=== PATIENT | female | born 1960 | race Caucasian/White ===

== ENCOUNTER 2017-03-24 21:29 | Emergency (ER) | payer OTHER ==
[2017-03-24 21:42] VITALS: PULSE 78
[2017-03-24] MEDS ORDERED: ATARAX 25 MG PO ONE (21:59)
--- NOTE | 2017-03-24 22:06 | ERPHSYRPT ---
- History of Present Illness Time Seen by Provider: 03/24/17 21:37 Source: patient Patient Subjective Stated Complaint: Pt sts that she has had elevated blood pressure since 1600 today. Sts took a few doses of her HTN medications to try to bring blood pressure down. Sts was 190's on top at home. Sts headache all over head 4/10 describes as dull. Sts eye pressure. Denies blurred vision. Denies shortness of breath. Sts nausea. Denies vomiting. Denies chest pain. Sts left arm felt like sore muscles earlier. Sts arm still feels sore. Sts feels like she is anxious due to increased stressors in the last few days. Denies cardiac hx Triage Nursing Assessment: Pt alert, oriented, answers all questions appropriately. Skin p/w/d, resps non-labored. 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 Pt ambulatory to tx room steady gait noted. Speaking in full sentences without difficulty. Lung sounds CTA bilat. ABD SNT x 4 quadrants, + bowel sounds. Physician History: CC: high blood pressure Hx: 56 y/o patient of Dr Kerns with hx of HTN. She had some stress and has felt a little anxious. She has Rx for klonopin but does not like to take it. Today felt a little unusual. Maybe slight headache. No chest pain. No N/T/W. [place] a little blurry. She checked BP and it was high. She took two extra halves of her BP med and came to ER. She lives at home with her boyfriend. Timing/Duration: today Allergies/Adverse Reactions: No Known Drug Allergies Allergy (Unverified 03/24/17 21:48) Home Medications: Levothyroxine Sodium [Synthroid] 25 mcg PO DAILY 03/24/17 [History] Losartan Potassium 25 mg PO DAILY 03/24/17 [History] Hx Influenza Vaccination/Date Given: No Hx Pneumococcal Vaccination/Date Given: No - Review of Systems Constitutional: Malaise, No Fever, No Chills Eyes: Vision Changes (blurry) Ears, Nose, & Throat: No Symptoms Respiratory: No Cough, No Dyspnea Cardiac: No Chest Pain Abdominal/Gastrointestinal: No Abdominal Pain, No Nausea, No Vomiting Musculoskeletal: No Back Pain, No Neck Pain Skin: No Rash Neurological: No Dizziness, No Focal Weakness, No Headache, No Parasthesia, No Seizure All Other Systems: Reviewed and Negative - Past Medical History Pertinent Past Medical History: Yes Cardiac History: Hypertension Endocrine Medical History: Hypothyroidism - Past Surgical History Gastrointestinal: Cholecystectomy Other Surgical History: 2 c-sections, sinus surgery - Social History Smoking Status: Former smoker Exposure to second hand smoke: No Drug Use: none Patient Lives Alone: No - Nursing Vital Signs Nursing Vital Signs: Initial Vital Signs Temperature 98.0 F Temperature Source Oral Pulse Rate 78 Respiratory Rate 12 Blood Pressure [Right Arm] 148/97 Pain Intensity 4 - Physical Exam General Appearance: alert Eye Exam: PERRL/EOMI Ears, Nose, Throat Exam: normal ENT inspection, moist mucous membranes Neck Exam: normal inspection, non-tender, supple Respiratory Exam: normal breath sounds, lungs clear Cardiovascular Exam: regular rate/rhythm Gastrointestinal/Abdomen Exam: soft, No tenderness, No distention Back Exam: normal inspection, normal range of motion Extremity Exam: normal inspection, normal range of motion Neurologic Exam: alert, oriented x 3, cooperative, 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, nml station & gait, sensation nml, No motor deficits Skin Exam: warm, dry SpO2 Interpretation: normal SpO2: 95 Oxygen Delivery: Room Air - Course Nursing assessment & vital signs reviewed: Yes Ordered Tests: Active Orders 24 hr Category Date Time Status Clean Catch Urine Specimen STAT Care 03/24/17 21:59 Active UA W/ MICROSCOPIC Stat Lab 03/24/17 21:59 Completed Medication Summary Discontinued Medications Generic Name Dose Route Start Last Admin Trade Name Freq PRN Reason Stop Dose Admin Hydroxyzine HCl 50 mg 03/24/17 21:59 03/24/17 22:11 Atarax 25 Mg PO 03/24/17 22:00 Not Given STAT ONE Lab/Rad Data: Laboratory Results 03/24/17 Range/Units 21:59 Ur Collection Type CLEAN CATCH Urine Color YELLOW (YELLOW) Urine Appearance CLEAR (CLEAR) Urine pH 7.5 (5-6) Ur Specific [place] 1.015 (1.005-1.025) Urine Protein NEGATIVE (Negative) Urine Glucose (UA) NEGATIVE (NEGATIVE) mg/dL Urine Ketones NEGATIVE (NEGATIVE) Urine Nitrite NEGATIVE (NEGATIVE) Urine Bilirubin NEGATIVE (NEGATIVE) Urine Urobilinogen 1 (0-1) mg/dL Urine WBC (Auto) TRACE (NEGATIVE) Urine RBC (Auto) NEGATIVE (0-5) Kirsh/ul Urine Microscopic WBC 0-2 (0-5) /HPF Urine Bacteria RARE (NEGATIVE) /HPF Specimen Received [id number] - Progress Progress Note: 03/24/17 22:06 BP better now. Advised hydrozyzine. She had recent normal labs. She declines EKG. Advised close follow up with Dr Kerns. 03/24/17 22:33 The patient is stable. BP better. She declined hydroxyzine here. Advised she take losartan 25 BID and follow up with Dr Kerns this week. She was advised to call or return for she would develope symptoms. Counseled pt/family regarding: lab results, diagnosis, need for follow-up - Departure Time of Disposition: 22:33 Departure Disposition: Home Clinical Impression: Hypertension Qualifiers: Hypertension type: essential hypertension Qualified Code(s): I10 - Essential ( primary) hypertension Condition: Stable Critical Care Time: No Referrals: EDYTA KERNS MD [Primary Care Provider] - Instructions: High Blood Pressure Additional Instructions: Take your losartan twice a day. Watch your salt intake and limit as best you can. Take your klonopin as already directed if needed. Follow up with Dr Kerns this week. Return for problems or concerns.
[2017-03-24 22:28] LABS: Bacteria RARE /HPF (NEGATIVE); COMPLETE URINE MICROSCOPIC? YES; Collection Type CLEAN CATCH; Ph 7.5 (5-6); WBC 0-2 /HPF (0-5)
[2017-03-24 22:34] VITALS: BP 142/91
[2017-03-24 22:35] VITALS: O2SAT 95
== END 2017-03-24 22:45 | disposition home or self-care (01) ==
LOC: ED 21:29
DX: I10 Essential (primary) hypertension (principal); R53.81 Other malaise; Z87.898 Personal history of other specified conditions; Z79.899 Other long term (current) drug therapy
CPT/HCPCS: 81000; 99283

== ENCOUNTER 2017-06-19 07:13 | Emergency (ER) | payer OTHER ==
[2017-06-19] MEDS ORDERED: Pepcid 20 MG VIAL IV ONE ×2 (07:34→07:40)
[2017-06-19] MEDS ORDERED: Zofran 4 MG/2 ML VIAL IV ONE (07:34)
[2017-06-19] MEDS ORDERED: GI COCKTAIL 60ML (Belladonn/Phenobarb/Lidoc PO ONE (07:34)
[2017-06-19] MEDS ORDERED: Zofran 4 MG/2 ML VIAL ONE (07:39)
[2017-06-19] MEDS ORDERED: MAALOX ES 30 ML UNIT DOSE ONE (07:41)
--- NOTE | 2017-06-19 07:41 | ERPHSYRPT ---
- History of Present Illness Time Seen by Provider: 06/19/17 07:19 Source: patient Exam Limitations: no limitations Patient Subjective Stated Complaint: states has nausea and "funny feeling" in abd that radiates into arms and legs. has been having these symptoms for several weeks. Triage Nursing Assessment: ambulated to room without difficulty. skin w/d, color normal. resp nonlabored. abd soft, nontender Physician History: the patient was awakened with nausea and a general funny feeling; when she got up she noticed her heart was racing and lasted about an hour; no vomiting; no chest pain; no shortness of breath; no diaphoresis; no incontinence or headache ; similar episodes intermittently times one year;becoming more frequent; unrelieved except with time; no syncope; no seizures; no shortness of breath; no chest pain; family history of heart; sleeps well; eats well; unaffected by food;saw her family doctor on Friday and labs were reported as normal;scheduled for stress test this coming Friday;symptoms have been more since starting on losartan 2 weeks ago Timing/Duration: today (worse than usual), week(s) (initial episode several), intermittent, sudden Severity: moderate Modifying Factors: Improves With: nothing Associated Symptoms: nausea, heartburn, loss of appetite, weakness (generalized) Allergies/Adverse Reactions: No Known Drug Allergies Allergy (Verified 06/19/17 07:33) Home Medications: Levothyroxine Sodium [Synthroid] 25 mcg PO DAILY 03/24/17 [History] Losartan Potassium 25 mg PO DAILY 03/24/17 [History] Fluticasone Propionate [Flonase NASAL] 16 gm NS UD 06/19/17 [History] Hx Tetanus, Diphtheria Vaccination/Date Given: No Hx Influenza Vaccination/Date Given: No Hx Pneumococcal Vaccination/Date Given: No - Review of Systems Constitutional: No Symptoms Eyes: No Symptoms Ears, Nose, & Throat: No Symptoms Respiratory: No Cough, No Dyspnea, No Wheezing Cardiac: Palpitations, No Chest Pain, No Syncope Abdominal/Gastrointestinal: Nausea, No Abdominal Pain, No Vomiting, No Diarrhea , No Constipation Genitourinary Symptoms: No Symptoms Musculoskeletal: No Symptoms Skin: No Symptoms Neurological: No Symptoms Psychological: No Symptoms Endocrine: No Symptoms Hematologic/Lymphatic: No Symptoms Immunological/Allergic: No Symptoms - Past Medical History Pertinent Past Medical History: Yes Cardiac History: Hypertension Endocrine Medical History: Hypothyroidism - Past Surgical History Past Surgical History: Yes Gastrointestinal: Cholecystectomy Other Surgical History: 2 c-sections, sinus surgery - Social History Smoking Status: Never smoker Exposure to second hand smoke: No Alcohol Use: Socially Drug Use: none Patient Lives Alone: No Significant Family History: no pertinent family hx - Female History Hx Now: No - Nursing Vital Signs Nursing Vital Signs: Initial Vital Signs Temperature 98.5 F 06/19/17 07:19 Pulse Rate 81 06/19/17 07:19 Respiratory Rate 18 06/19/17 07:19 Blood Pressure 150/96 06/19/17 07:19 O2 Sat by Pulse Oximetry 99 06/19/17 07:19 Pain Scale Pain Intensity 0 - Physical Exam General Appearance: mild distress, alert, anxiety Eye Exam: PERRL/EOMI, eyes nml inspection, No photophobia Ears, Nose, Throat Exam: normal ENT inspection, TMs normal, pharynx normal, moist mucous membranes Neck Exam: normal inspection, non-tender, supple, full range of motion, No meningismus, No carotid bruit, No JVD Respiratory Exam: normal breath sounds, lungs clear, airway intact, No chest tenderness, No respiratory distress Cardiovascular Exam: regular rate/rhythm, normal heart sounds, normal peripheral pulses, No murmur, No friction rub Gastrointestinal/Abdomen Exam: soft, normal bowel sounds, No tenderness, No distention, No guarding, No pulsatile mass, No rebound, No organomegaly Pelvic Exam: deferred Rectal Exam: deferred Back Exam: normal inspection, normal range of motion, No CVA tenderness, No rash Extremity Exam: normal inspection, normal range of motion, No pk's sign, No pedal edema Neurologic Exam: alert, oriented x 3, cooperative, 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, nml cerebellar function, nml station & gait, No normal mood/affect ( slightlyanxious) Skin Exam: normal color, warm, dry, No rash Lymphatic Exam: No adenopathy SpO2 Interpretation: normal SpO2: 99 Oxygen Delivery: Room Air - Course Nursing assessment & vital signs reviewed: Yes EKG Interpreted by Me: RATE (73), Sinus Rhythm, NORMAL AXIS, NORMAL INTERVALS, NORMAL QRS, NORMAL ST-T, Other (compared to EKG from [id number]) Rhythm Strip: Rate (112 regular), Sinus Tachycardia (when symptomatic) Ordered Tests: Active Orders 24 hr Category Date Time Status EKG-ER Only STAT Care 06/19/17 07:34 Active IV Insertion STAT Care 06/19/17 07:34 Active CHEST 1 VIEW (PORTABLE) Stat Exams 06/19/17 07:35 Completed AMYLASE Stat Lab 06/19/17 07:25 Completed CBC W DIFF Stat Lab 06/19/17 07:25 Completed CMP Stat Lab 06/19/17 07:25 Completed LIPASE Stat Lab 06/19/17 07:25 Completed TROPONIN Q3H Lab 06/19/17 07:45 Completed TROPONIN Q3H Lab 06/19/17 10:45 Ordered TROPONIN Q3H Lab 06/19/17 13:45 Ordered TROPONIN Q3H Lab 06/19/17 16:45 Ordered TROPONIN Q3H Lab 06/19/17 19:45 Ordered UA W/RFX UR CULTURE Stat Lab 06/19/17 07:20 Completed Medication Summary Generic Name Dose Route Start Last Admin Trade Name Freq PRN Reason Stop Dose Admin Potassium Chloride 40 meq 06/19/17 10:00 06/19/17 08:58 Potassium Chl 40 Meq/30 Ml Oral Solution PO 07/19/17 09:59 40 meq DAILY MADSION Administration Discontinued Medications Generic Name Dose Route Start Last Admin Trade Name Freq PRN Reason Stop Dose Admin Al Hydrox/Mg Hydrox/Simethicone Confirm 06/19/17 07:41 Maalox Es 30 Ml Unit Dose Administered 06/19/17 07:42 Dose 30 ml .ROUTE .STK-MED ONE Belladonna Alkaloids/Phenobarbital 60 ml 06/19/17 07:34 06/19/17 07:54 Gi Cocktail 60ml (Belladonn/Phenobarb/Lidoc* PO 06/19/17 07:35 60 ml STAT ONE Administration Belladonna Alkaloids/Phenobarbital Confirm 06/19/17 07:42 Donnatol Liquid Administered 06/19/17 07:43 Dose 64.8 mg .ROUTE .STK-MED ONE Famotidine 20 mg 06/19/17 07:34 06/19/17 07:50 Pepcid 20 Mg Vial IV 06/19/17 07:35 20 mg STAT ONE Administration Famotidine Confirm 06/19/17 07:40 Pepcid 20 Mg Vial Administered 06/19/17 07:41 Dose 20 mg IV .STK-MED ONE Lidocaine HCl Confirm 06/19/17 07:46 Xylocaine Hcl Viscous * Administered 06/19/17 07:47 Dose 20 ml .ROUTE .STK-MED ONE Ondansetron HCl 4 mg 06/19/17 07:34 06/19/17 07:50 Zofran 4 Mg/2 Ml Vial IV 06/19/17 07:35 4 mg STAT ONE Administration Ondansetron HCl Confirm 06/19/17 07:39 Zofran 4 Mg/2 Ml Vial Administered 06/19/17 07:40 Dose 4 mg .ROUTE .STK-MED ONE Potassium Chloride Confirm 06/19/17 08:56 Potassium Chl 40 Meq/30 Ml Oral Solution Administered 06/19/17 08:57 Dose 40 meq .ROUTE .STK-MED ONE Lab/Rad Data: Laboratory Result Diagrams 06/19/17 07:25 06/19/17 07:25 Laboratory Results 06/19/17 06/19/17 06/19/17 Range/Units 07:45 07:25 07:25 WBC 5.5 (4.0-10.5) K/mm3 RBC 5.09 (4.1-5.4) M/mm3 Hgb 15.0 (12.0-16.0) gm/dl Hct 44.4 (35-47) % MCV 87.2 (78-100) fl MCH 29.5 (26-32) pg MCHC 33.8 (32-36) g/dl RDW 13.7 (11.5-14.0) % Plt Count 229 (150-450) K/mm3 MPV 10.2 H (6-9.5) fl Gran % 58.0 (36.0-66.0) % Lymphocytes % 30.8 (24.0-44.0) % Monocytes % 8.6 (0.0-12.0) % Eosinophils % 2.2 (0.00-5.0) % Basophils % 0.4 (0.0-0.4) % Basophils # 0.02 (0-0.4) Sodium 142 (136-145) mEq/L Potassium 3.1 L (3.5-5.1) mEq/L Chloride 103 (98-107) mEq/L Carbon Dioxide 29.2 (21-32) mEq/L Anion Gap 12.9 (5-15) MEQ/L BUN 11 (9-20) mg/dL Creatinine 0.72 (0.55-1.30) mg/dl Estimated GFR > 60 ML/MIN Glucose 111 H (70-110) MG/DL Calcium 9.2 (8.5-10.1) mg/dL Total Bilirubin 0.70 (0.2-1.0) mg/dL AST 22 (15-37) U/L ALT 12 (12-78) U/L Alkaline Phosphatase 74 (46-116) U/L Troponin I < 0.017 (0.000-0.056) ng/ml Serum Total Protein 7.5 (6.4-8.2) gm/dL Albumin 3.9 (3.4-5.0) g/dL Amylase 53 (25-115) U/L Lipase 273 (73-393) U/L Ur Collection Type Urine Color (YELLOW) Urine Appearance (CLEAR) Urine pH (5-6) Ur Specific [place] (1.005-1.025) Urine Protein (Negative) Urine Ketones (NEGATIVE) Urine Blood (0-5) Krish/ul Urine Nitrite (NEGATIVE) Urine Bilirubin (NEGATIVE) Urine Urobilinogen (0-1) mg/dL Ur Leukocyte Esterase (NEGATIVE) Urine Glucose (NEGATIVE) mg/dL Specimen Received 06/19/17 Range/Units 07:20 WBC (4.0-10.5) K/mm3 RBC (4.1-5.4) M/mm3 Hgb (12.0-16.0) gm/dl Hct (35-47) % MCV (78-100) fl MCH (26-32) pg MCHC (32-36) g/dl RDW (11.5-14.0) % Plt Count (150-450) K/mm3 MPV (6-9.5) fl Gran % (36.0-66.0) % Lymphocytes % (24.0-44.0) % Monocytes % (0.0-12.0) % Eosinophils % (0.00-5.0) % Basophils % (0.0-0.4) % Basophils # (0-0.4) Sodium (136-145) mEq/L Potassium (3.5-5.1) mEq/L Chloride (98-107) mEq/L Carbon Dioxide (21-32) mEq/L Anion Gap (5-15) MEQ/L BUN (9-20) mg/dL Creatinine (0.55-1.30) mg/dl Estimated GFR ML/MIN Glucose (70-110) MG/DL Calcium (8.5-10.1) mg/dL Total Bilirubin (0.2-1.0) mg/dL AST (15-37) U/L ALT (12-78) U/L Alkaline Phosphatase (46-116) U/L Troponin I (0.000-0.056) ng/ml Serum Total Protein (6.4-8.2) gm/dL Albumin (3.4-5.0) g/dL Amylase (25-115) U/L Lipase (73-393) U/L Ur Collection Type VOID Urine Color COLORLESS (YELLOW) Urine Appearance CLEAR (CLEAR) Urine pH 7.0 (5-6) Ur Specific [place] 1.000 (1.005-1.025) Urine Protein NEGATIVE (Negative) Urine Ketones NEGATIVE (NEGATIVE) Urine Blood NEGATIVE (0-5) Krish/ul Urine Nitrite NEGATIVE (NEGATIVE) Urine Bilirubin NEGATIVE (NEGATIVE) Urine Urobilinogen NORMAL (0-1) mg/dL Ur Leukocyte Esterase NEGATIVE (NEGATIVE) Urine Glucose NEGATIVE (NEGATIVE) mg/dL Specimen Received 06/19/17 0720 reviewed - Progress Progress: improved (after meds), re-examined (After tests) Progress Note: 06/19/17 07:42 treatment plan discussed; EKG obtained and normal; compared to old EKG without change; chest x-ray pending labs pending; will monitor and recheck;meds given 06/19/17 07:43 06/19/17 08:00 rechecked and patient getting some relief of symptoms with meds but not complete ; up to bathroom; VS ok with mild hypertension 156/94; CBC and U/A wnl; CXR WNL - NAD; will monitor and recheck 06/19/17 08:40 rechecked and patient having another episode; Trop wnl; BP 142; 92; pulse 112 ST ; Rhythm strip 112 ST; no PVC or other arrythmia; alert; anxious; hyperventilating; complaining of nausea and gurgling in lower abdomen - BS hyperactive;; chemogram pending; gave rest of GI meds hadn't taken; will monitor and recheck 06/19/17 08:49 CMP wnl except for lo K+ of 3.1, will give K+ and recheck and monitor 06/19/17 09:23 rechecked and discussed treatment plan and instructions; feeling better after meds Counseled pt/family regarding: lab results, diagnosis, need for follow-up, rad results - Departure Time of Disposition: 09:23 Departure Disposition: Home Clinical Impression: Hypokalemia due to loss of potassium, Hypertension Condition: Stable Critical Care Time: No Referrals: EDYTA KERNS MD [Primary Care Provider] - Instructions: Hypokalemia Additional Instructions: K+ rich diet; continue home meds; call lmd for recheck K+ next week; keep appt for stress test Follow-up with family doctor as directed. Call for appointment. Return if any problems. If you smoke please stop. Call or follow up with your family doctor for assistance if you need it to stop. Please wear your seatbelt when driving. Have a nice day. Thank you for allowing us to participate in your care today. :o) Dr Michael Gonzales Prescriptions: Potassium Bicarbonate/Cit AC [Potassium 25 Meq Tablet Eff] 25 meq PO QAM #30 tablet.eff
[2017-06-19] MEDS ORDERED: Donnatol Liquid ONE (07:42)
[2017-06-19] MEDS ORDERED: XYLOCAINE HCl Viscous ONE (07:46)
[2017-06-19 07:49] LABS: BASOPHIL % 0.4 % (0.0-0.4); Eosinophil % 2.2 % (0.00-5.0); Lymphocytes % 30.8 % (24.0-44.0); Mean Cell Volume 87.2 fl (78-100); Mean Corpuscular Hemoglobin 29.5 pg (26-32); Mean Platelet Volume 10.2 fl (6-9.5); Monocytes % 8.6 % (0.0-12.0); Platelet Count 229 K/mm3 (150-450); Red Blood Count 5.09 M/mm3 (4.1-5.4); Red Cell Distribution Width 13.7 % (11.5-14.0); White Blood Count 5.5 K/mm3 (4.0-10.5)
[2017-06-19 07:50] LABS: ADD URINE CULTURE? NO (NO); Bilirubin NEGATIVE (NEGATIVE); Blood NEGATIVE Ery/ul (0-5); COMPLETE URINE MICROSCOPIC? NO; Collection Type VOID; Glucose NEGATIVE (NEGATIVE); Leukocyte Esterase NEGATIVE (NEGATIVE)
[2017-06-19 08:37] LABS: ALBUMIN 3.9 g/dL (3.4-5.0); ALKALINE PHOSPHATASE 74 U/L (46-116); ANION GAP 12.9 MEQ/L (5-15); BLOOD UREA NITROGEN 11 mg/dL (9-20); CHLORIDE 103 mEq/L (98-107); Carbon Dioxide 29.2 mEq/L (21-32); Glucose 111 MG/DL (70-110); LIPASE 273 U/L (73-393); Potassium 3.1 mEq/L (3.5-5.1); SGOT/AST 22 U/L (15-37); SGPT/ALT 12 U/L (12-78); SODIUM 142 mEq/L (136-145); Total Protein 7.5 gm/dL (6.4-8.2)
[2017-06-19] MEDS ORDERED: POTASSIUM CHL 40 MEQ/30 ML ORAL SOLUTION ONE (08:56)
--- NOTE | 2017-06-19 09:03 | XRAY ---
Indication: Chest discomfort. Comparison: January 02, 2012. Portable chest again demonstrates normal heart and lungs. Bony thorax intact with minimal degenerative changes.
[2017-06-19 09:36] VITALS: BP 143/73; PULSE 96; O2SAT 97
[2017-06-19] MEDS ORDERED: POTASSIUM CHL 40 MEQ/30 ML ORAL SOLUTION PO SCH (10:00)
== END 2017-06-19 09:42 | disposition home or self-care (01) ==
LOC: ED 07:13
DX: E87.6 Hypokalemia (principal); I10 Essential (primary) hypertension; R11.0 Nausea; R12 Heartburn; R63.0 Anorexia; R53.1 Weakness; R00.2 Palpitations
CPT/HCPCS: 36000; 36415; 71010; 80053; 81002; 82150; 83690; 84484; 85025; 93005; 96374; 96375; 99284; J2405; A9270-GY